=== PATIENT | male | born 1990 | race Two or more races ===

== ENCOUNTER 2020-09-22 18:28 | Emergency (ER) | payer MEDICAID ==
[~2020-09-22] VITALS: Ht 170.2 cm; Wt 54.4 kg
--- NOTE | 2020-09-22 19:00 | NUR ---
Patient present to the ED complaining of pain in his upper left chest. There does seem to a small buldge present in that area of his body. No chest pain, SOB, and VSS. Lung sounds clear chucky, and no complaints of palpitations. GI/ functions normal.
[2020-09-22] MEDS ORDERED: LIDOCAINE HCL 2% 20 ML VIAL IJ ONE (19:15)
[2020-09-22] MEDS ORDERED: IBUPROFEN 600 MG TABLET PO ONE (19:15)
[2020-09-22] MEDS ORDERED: SULFAMETH/TRIMETH 800/160 MG TABLET PO ONE (19:15)
[2020-09-22 19:22] LABS: BASOPHILS % (AUTO) 0.6 % (0.0-2.0); EOSINOPHILS % (AUTO) 0.2 % (0.0-7.0); HEMATOCRIT 40.7 % (36.7-47.1); HEMOGLOBIN 13.6 g/dL (12.5-16.3); LYMPHOCYTES # (AUTO) 1.9 K/uL (20.0-40.0); LYMPHOCYTES % (AUTO) 24.9 % (20.5-51.5); MEAN CORPUSCULAR HGB CONC 33 g/dL (32.5-36.3); MEAN CORPUSCULAR VOLUME 83.9 fL (73.0-96.2); MONOCYTES # (AUTO) 0.3 K/uL (2.0-10.0); MONOCYTES % (AUTO) 4.6 % (0.0-11.0); NEUTROPHILS # (AUTO) 5.2 K/uL (1.8-8.9); NEUTROPHILS % (AUTO) 69.7 % (38.5-71.5); PLATELET COUNT (AUTO) 309 K/uL (152-348); RED BLOOD CELL COUNT(AUTO) 4.85 MIL/uL (4.06-5.63); WHITE BLOOD COUNT (AUTO) 7.4 K/uL (3.6-10.2)
[2020-09-22 19:27] LABS: POTASSIUM 3.2 mmol/L (3.5-5.1)
[2020-09-22] MEDS ORDERED: FAMOTIDINE. 20 MG/2 ML VIAL IV ONE (19:31)
[2020-09-22 19:33] LABS: BILIRUBIN,DIRECT 0.1 mg/dL (0.0-0.2); BILIRUBIN,TOTAL 0.6 mg/dL (0.2-1.0)
[2020-09-22] MEDS ORDERED: MAG HYDROX/AL HYDROX/SIMETH 30 ML LIQUID UDC ONE (19:35)
[2020-09-22] MEDS: FAMOTIDINE. 20 MG/2 ML VIAL IV ONE (19:48)
[2020-09-22] MEDS: IV NORMAL SALINE 1000 ML BAG IV ONE (19:48)
[2020-09-22] MEDS: MAG HYDROX/AL HYDROX/SIMETH 30 ML LIQUID UDC PO ONE (19:49)
[2020-09-22 20:34] LABS: *AMPHETAMINE, URINE NEGATIVE (NEGATIVE); *CANNABINOID, URINE POSITIVE (NEGATIVE); *COCCAINE, URINE NEGATIVE (NEGATIVE); *OPIATE, URINE NEGATIVE (NEGATIVE); *PHENCYCLIDINE SCREEN,URINE NEGATIVE (NEGATIVE)
[2020-09-22] MEDS ORDERED: FAMO-132 PO (20:38)
--- NOTE | 2020-09-22 20:52 | NUR ---
Patient discharged to home in stable condition. A&Ox4. Written and verbal after care instructions given. Patient verbalizes understanding of instructions. Stressed follow up or return to ER for worsening s/s. Steady gait. Belongings with him. IV removed.
[2020-09-22 20:54] VITALS: BP 122/79
== END 2020-09-22 20:55 | disposition home or self-care (01) ==
LOC: ER 18:30
DX: R10.13 Epigastric pain (principal); R11.0 Nausea; R03.0 Elevated blood-pressure reading, without diagnosis of hypertension
CPT/HCPCS: 36415; 71045; 83690; 85025; A4663; J3490; J7030